=== PATIENT | female | born 1955 | race Caucasian/White ===

== ENCOUNTER 2019-03-28 20:09 | Emergency (ER) | payer OTHER ==
[~2019-03-28] VITALS: Ht 165.1 cm; Wt 97.5 kg
[~2019-03-28 20:09] MED LIST: LEXAPRO5 MG PO; SYNTHROID50 MCG PO
[2019-03-28] MEDS ORDERED: TOPROL XL25 M1 (20:23)
[2019-03-28] MEDS ORDERED: XARELTO20 MG (20:23)
== END 2019-03-28 22:10 | disposition home or self-care (01) ==
LOC: ER 20:09
DX: K57.90 Diverticulosis of intestine, part unspecified, without perforation or abscess without bleeding (principal); K58.9 Irritable bowel syndrome, unspecified; R10.32 Left lower quadrant pain

== ENCOUNTER 2021-12-31 10:01 | Emergency (ER) | payer OTHER | END 2021-12-31 13:13 | disposition home or self-care (01) | LOC: ER 10:01 | DX: J06.9 Acute upper respiratory infection, unspecified (principal); I10 Essential (primary) hypertension; E11.9 Type 2 diabetes mellitus without complications; Z79.84 Long term (current) use of oral hypoglycemic drugs; Z88.0 Allergy status to penicillin; Z20.822 Contact with and (suspected) exposure to COVID-19 ==